=== PATIENT | female | born 1965 | race African-American/Black ===

== ENCOUNTER 2016-08-29 22:12 | Emergency (ER) | payer OTHER ==
[~2016-08-29] VITALS: Ht 162.6 cm; Wt 86.2 kg
[~2016-08-29 22:12] MED LIST: FOLI0.4T2 PO; GABA-586 PO; METH25VI11 SQ; ONDA4TAB10 PO
[2016-08-29] MEDS ORDERED: OXYCODONE/APAP 10/325 TABLET. ONE (22:41)
--- NOTE | 2016-08-29 23:18 | PHYS DOC ---
General Chief Complaint: CHEST PAIN Stated Complaint: CHEST PAIN Time Seen by MD: 23:01 Source: patient, family Problems: History of Present Illness Initial Comments Patient here with for chest pain. Patient says it started about 2 hours prior to arrival in emergency department. Feels a squeezing sensation in the center of the chest. She says she's never had this before. She was simply at rest when this started. She has no real shortness of breath but has made her break out into a sweat and feel hot. There is no nausea or vomiting with this. There is no history of injury or trauma to the chest. She's had no fever chills runny nose or sore throat. No cough. No abdominal pain. There is no change in bowel or bladder habits and no focal extremity or neurologic complaints are noted. does note the patient had elevated blood pressure at home up above 180 systolic. Her blood pressures normally run about 1:30 according to him. Patient did receive an aspirin at home which she thinks may have helped. There is no other increasing or decreasing factors. Patient's past medical shows marked for hypertension. She has no problems with cholesterol or diabetes. She is a nonsmoker and nonuser of ethanol. She has no family history known of heart disease. Allergies: Coded Allergies: No Known Drug Allergies (Unverified , 12/24/15) Past Medical History Medical History: hypertension Surgical History: gastric bypass, other Social History Smoker: non-smoker Alcohol: none Review of Systems All Other Systems: Reviewed and Negative Physical Exam General Appearance: WD/WN, no apparent distress Ear, Nose, Throat: normal ENT inspection, normal pharynx Neck: full range of motion, supple, normal inspection Respiratory: lungs clear, normal breath sounds, no respiratory distress Cardiovascular: regular rate, rhythm, no edema Gastrointestinal: non tender, soft, no organomegaly Back: no CVA tenderness, no vertebral tenderness Extremities: non-tender, normal inspection, no pedal edema Neurologic/Psychiatric: alert, normal mood/affect, oriented x 3 Skin: normal color Lymphatic: no adenopathy Comments Generally this is a well-developed well-nourished female in no acute distress. Vitals are as noted. Pertinent findings on physical exam shows the neck is supple without adenopathy or JVD. There's no meningeal signs. Chest is clear to auscultation bilaterally. There is no chest wall tenderness noted. Cardiac exam shows regular rate and rhythm without murmur. The abdomen is soft and nontender. Back shows no CVA tenderness. Extremities show no rash cyanosis or edema. Patient awake alert oriented and cooperative. Remainder of physical exam is clinically unremarkable. Orders, Labs, Meds Old charts note previous ER visits for gastroenteritis, medication refill, arthritis, degenerative joint disease. EKG shows sinus 70. Left axis deviation. No acute ST or T-wave changes. Labs today are essentially unremarkable. Cardiac enzymes are unremarkable. BNP is minimally elevated at 175. Chest x-ray shows some mild cardio megaly. There is no acute changes per the emergency physician. 0015 Patient resting comfortably in the ER. She has no further complaint of chest pain at this time. I discussed with the patient and her the uncertain cause or chest pain. She does have some cardiac risk factors including being -Iranian and hypertension, she did have an episode of hypertension documented home today. Her chest pain could be ischemic in nature as well. I discussed with her and her the safest course of action pugged admission in the hospital overnight for serial enzyme testing, cardiology consult in the morning, and possible stress testing to rule out MO or other cardiac disease. Patient really feels well, she has immediate and she wants to go to in the morning. She really would prefer to go home at this time. She and her do voice understanding of the risk of a missed heart attack or other problems should she go home. She does state that she will follow-up with her own physician tomorrow when encouraged to do so, they indicated that she may require cardiology referral or stress test from her family physician. She is encouraged to do so tomorrow. She also promises to return to the ER immediately if worsening anyway, including increasing pain, radiation of pain, nausea vomiting diaphoresis or shortness of breath. She understands that at that time we will just go ahead and admit her to the hospital. I did discuss discussed with her the need to take an aspirin daily for heart health. She voices understanding of this instruction as well as the risks of discharge. She is awake alert oriented and capable of making a reasonable decision on her part. She looks well, in no acute discomfort or stress, okay for discharge home at this time per her preference. JASPAL HORNE MD Aug 29, 2016 23:18
[2016-08-29] MEDS: FENTANYL PF 100 MCG/2 ML VIAL. IV ONE (23:30)
[2016-08-29 23:34] LABS: BASO % 1 % (0-3); EOS # 0.1 x10^3/uL (0.0-0.7); EOS % 2 % (0-3); HEMATOCRIT 39.2 % (36.0-47.0); HEMOGLOBIN 12.6 g/dL (12.0-15.5); LYMPH # 1.8 x10^3/uL (1.0-4.8); LYMPH % 58 % (24-48); MEAN CORPUSCULAR HEMOGLOBIN 31 pg (25-35); MEAN CORPUSCULAR HGB CONC 32 g/dL (31-37); MEAN CORPUSCULAR VOLUME 95 fL (79-100); MONO # 0.4 x10^3/uL (0.0-1.1); MONO % 14 % (0-9); NEUT # 0.8 x10^3uL (1.8-7.7); NEUT % 26 % (31-73); PLATELET COUNT 106 x10^3/uL (140-400); RED BLOOD COUNT 4.13 x10^6/uL (3.50-5.40); RED CELL DISTRIBUTION WIDTH 15.5 % (11.5-14.5); WHITE BLOOD COUNT 3.1 x10^3/uL (4.0-11.0)
[2016-08-29 23:42] LABS: BACTERIA,URINE 0 /HPF (0-FEW); BILIRUBIN,URINE NEG (NEG); CLARITY,URINE CLEAR; COLOR,URINE YELLOW; GLUCOSE,URINE NEG (NEG); NITRITE,URINE NEG (NEG); RBC,URINE 0 /HPF (0-2); SQUAMOUS EPITHELIAL CELL,UR FEW /LPF; UROBILINOGEN,URINE 0.2 mg/dL (0.2 mg/dL); WBC,URINE OCC /HPF (0-4)
[2016-08-29 23:50] LABS: ALBUMIN 3.6 g/dL (3.4-5.0); ALBUMIN/GLOBULIN RATIO 0.9 (1.0-1.7); CALCIUM 8.6 mg/dL (8.5-10.1); CREATININE 0.8 mg/dL (0.6-1.0); GFR 90.8; TOTAL BILIRUBIN 0.5 mg/dL (0.2-1.0); TOTAL PROTEIN 7.6 g/dL (6.4-8.2)
[2016-08-30 00:40] VITALS: BP 131/91
--- NOTE | 2016-08-30 07:51 | EKG ---
[address] [address] Test Date: 2016-08-29 Test Time: 22:20:15 Pat Name: JUAN ANTONIO ROBERT Department: Room: Gender: F Shipping Assistant: WESTLEY : 1965 Requested By: JASPAL HORNE Order Number: [id number] Reading MD: Measurements Intervals [place] Rate: 82 P: 34 NE: 160 QRS: -22 QRSD: 94 T: 21 QT: 350 QTc: 412 Interpretive Statements SINUS RHYTHM LEFTWARD AXIS R-S TRANSITION ZONE IN V LEADS DISPLACED TO THE LEFT OTHERWISE NORMAL ECG RI6.01 Unconfirmed report No previous ECG available for comparison
--- NOTE | 2016-08-30 09:20 | RAD ---
Portable chest, 08/29/2016: History: Chest pain The heart is at the upper limits of normal in size. There is tortuosity of the thoracic aorta. The pulmonary vascularity is normal. There appears to be a calcified granuloma in the left upper lobe. No acute infiltrates are seen. There is no evidence of pleural fluid. IMPRESSION: No acute cardiopulmonary abnormality is detected.
== END 2016-08-30 00:40 | disposition home or self-care (01) ==
LOC: ER 22:16
DX: R07.89 Other chest pain (principal); I10 Essential (primary) hypertension; Z98.84 Bariatric surgery status
CPT/HCPCS: 36415; 71010; 80053; 81001; 82553; 83880; 84484; 85027; 85610; 93005; 99285-25

== ENCOUNTER 2017-03-07 17:36 | Emergency (ER) | payer OTHER ==
[~2017-03-07] VITALS: Ht 160 cm; Wt 90.7 kg
[2017-03-07 17:54] VITALS: BP 109/81
--- NOTE | 2017-03-07 18:20 | PHYS DOC ---
Past History Past Medical History: Arthritis, Hypertension, Hypothyroid Past Surgical History: Gastric Bypass, Other Alcohol Use: None Drug Use: None Adult General Chief Complaint Chief Complaint: COUGH HPI HPI Patient is a 51 year old -[place] female who presents with a cough over the last 2 weeks. She states today she felt short of breath briefly but that has resolved. She states she coughs up clear sputum. She does have a history of smoking 3-5 cigarettes a day for 4 years and she stopped a year ago. She is having some discomfort in her left breast she states is worse when she takes a big deep breath it is tender on palpation. Currently she is denying shortness of breath and she states the discomfort is minimal. She denies a family history of heart attack. Review of Systems Review of Systems Constitutional: Denies fever or chills [] Eyes: Denies change in visual acuity, redness, or eye pain [] HENT: Denies nasal congestion or sore throat [] Respiratory: Denies cough or shortness of breath [] Cardiovascular: No additional information not addressed in HPI [] GI: Denies abdominal pain, nausea, vomiting, bloody stools or diarrhea [] : Denies dysuria or hematuria [] Musculoskeletal: Denies back pain or joint pain [] Integument: Denies rash or skin lesions [] Neurologic: Denies headache, focal weakness or sensory changes [] Endocrine: Denies polyuria or polydipsia [] Allergies Allergies Allergies Coded Allergies Type Severity Reaction Last Updated Verified No Known Drug Allergies 03/07/17 No Physical Exam Physical Exam Constitutional: Well developed, well nourished, no acute distress, non-toxic appearance. [] HENT: Normocephalic, atraumatic, bilateral external ears normal, oropharynx moist, no oral exudates, nose normal. [] Eyes: PERRLA, EOMI, conjunctiva normal, no discharge. [] Neck: Normal range of motion, no tenderness, supple, no stridor. [] Cardiovascular:Heart rate regular rhythm, no murmur [] Lungs & Thorax: Wheezing bilaterally, mild tender to palpation in the left breast on the chest wall Abdomen: Bowel sounds normal, soft, no tenderness, no masses, no pulsatile masses. [] Skin: Warm, dry, no erythema, no rash. [] Back: No tenderness, no CVA tenderness. [] Extremities: No tenderness, no cyanosis, no clubbing, ROM intact, no edema. [] Neurologic: Alert and oriented X 3, normal motor function, normal sensory function, no focal deficits noted. [] Psychologic: Affect normal, judgement normal, mood normal. [] Current Patient Data Vital Signs Vital Signs Date Time Temp Pulse Resp B/P (MAP) Pulse Ox O2 Delivery O2 Flow Rate FiO2 03/07/17 17:54 98.5 71 18 98 Room Air EKG EKG EKG shows heart rate [address] elevations or concerning T-wave inversions, normal axis, nonspecific intraventricular block noted, QTC 480 ms, as interpreted by me. Radiology/Procedures Radiology/Procedures View chest x-ray did not show any focal is elevations, bony abnormality's, pneumothorax, as interpreted by me. Impressions: Bronchitis Course & Med Decision Making Course & Med Decision Making Pertinent Labs and Imaging studies reviewed. (See chart for details) She does any history of smoking and felt better with DuoNeb. Walking desat was appropriate in the ER and did not desat or become tachycardic. She's being discharged with a Z-João, albuterol and prednisone for 5 days. Return precautions given. She is agreeable Plan B discharged in stable condition this time. Dragon Disclaimer Dragon Disclaimer This chart was dictated in whole or in part using Voice Recognition software in a busy, high-work load, and often noisy Emergency Department environment. It may contain unintended and wholly unrecognized errors or omissions. Departure Departure: Impression: Primary Impression: Cough Disposition: 01 HOME, SELF-CARE Condition: STABLE Referrals: HARDEEP CARIAS (PCP) Patient Instructions: Acute Bronchitis Additional Instructions: Your chest x-ray, EKG and lab work did not show acute abnormality's. You likely a bronchitis. Your being discharged home with 3 medicines. The first was an antibiotic called azithromycin. Please follow instructions on the prescription. The second one is an albuterol inhaler to use 1-2 puffs every 4-6 hours as needed for wheezing and the last medicine is prednisone the you'll need take one tablet daily for the next 5 days. If you develop worsening cough, fevers or have other concerns please return back to emergency department. You should follow-up with primary care physician within the next week. Scripts Albuterol Sulfate (PROAIR HFA INHALER) 8.5 Gm Hfa.aer.ad 1 PUFF INH PRN Q6HRS Y for SHORTNESS OF BREATH, #1 INHALER 0 Refills Prov: YUE ZEPEDA MD 03/07/17 Azithromycin (AZITHROMYCIN PACKET) 1 Gm Packet 1 PACKET PO ONCE, #1 PACKET Prov: YUE ZEPEDA MD 03/07/17 Prednisone (PREDNISONE) 50 Mg Tablet 1 TAB PO DAILY, #4 TAB Prov: YUE ZEPEDA MD 03/07/17 YUE ZEPEDA MD Mar 07, 2017 18:20
[2017-03-07] MEDS ORDERED: IPRATRPIUM/ALBUTEROL 0.5/2.5MG 3 ML NEBU. NEB ONE ×2 (19:00)
--- NOTE | 2017-03-07 19:29 | EKG ---
[address] [address] Test Date: 2017-03-07 Test Time: 18:59:13 Pat Name: JUAN ANTONIO ROBERT Department: Room: Gender: F Psychologist Research Assistant: : 1965 Requested By: YUE ZEPEDA Order Number: [id number] Reading MD: Measurements Intervals [place] Rate: 68 P: 0 [place]: 76 QRS: 4 QRSD: 210 T: 26 QT: 454 QTc: 488 Interpretive Statements SINUS RHYTHM NON SPECIFIC INTRAVENTRICULAR BLOCK QRS(T) CONTOUR ABNORMALITY CONSISTENT WITH ANTEROLATERAL INFARCT AGE UNDETERMINED ABNORMAL ECG RI6.01 No previous ECG available for comparison
[2017-03-07 19:32] LABS: BASO % 0 % (0-3); EOS # 0.1 x10^3/uL (0.0-0.7); EOS % 1 % (0-3); HEMOGLOBIN 13.1 g/dL (12.0-15.5); LYMPH # 2.9 x10^3/uL (1.0-4.8); LYMPH % 43 % (24-48); MEAN CORPUSCULAR HEMOGLOBIN 30 pg (25-35); MEAN CORPUSCULAR HGB CONC 34 g/dL (31-37); MEAN CORPUSCULAR VOLUME 89 fL (79-100); MONO # 0.5 x10^3/uL (0.0-1.1); MONO % 7 % (0-9); NEUT # 3.3 x10^3uL (1.8-7.7); NEUT % 49 % (31-73); PLATELET COUNT 128 x10^3/uL (140-400); RED CELL DISTRIBUTION WIDTH 14.8 % (11.5-14.5); WHITE BLOOD COUNT 6.8 x10^3/uL (4.0-11.0)
[2017-03-07 19:50] LABS: ALBUMIN 3.1 g/dL (3.4-5.0); CALCIUM 8.7 mg/dL (8.5-10.1); CREATININE 0.8 mg/dL (0.6-1.0); DIRECT BILIRUBIN 0.1 mg/dL (0.0-0.2); GFR 90.8; POTASSIUM 3.7 mmol/L (3.5-5.1); TOTAL BILIRUBIN 0.4 mg/dL (0.2-1.0); TOTAL PROTEIN 7.3 g/dL (6.4-8.2)
[2017-03-07] MEDS ORDERED: ALBU8.5H8 INH (20:07)
[2017-03-07] MEDS ORDERED: PRED50TA PO (20:07)
[2017-03-07] MEDS ORDERED: AZIT1PAC9 PO (20:07)
[2017-03-07] MEDS ORDERED: predniSONE 10 MG TABLET PO ONE (20:30)
[2017-03-07] MEDS ORDERED: AZITHROMYCIN 250 MG TABLET. PO ONE (20:30)
--- NOTE | 2017-03-08 07:42 | RAD ---
Chest x-ray Indication: Cough Technique: PA and lateral views of the chest Comparison: Previous study from 08/2016 Findings: Heart is normal in size. Ectatic thoracic aorta. Calcified left hilar lymph nodes. Stable calcified granuloma, left upper lobe. Otherwise, lungs are clear. No pneumothorax or pleural effusion. Multilevel degenerative changes seen in the thoracic spine. Impression: No acute cardiopulmonary process.
== END 2017-03-07 20:25 | disposition home or self-care (01) ==
LOC: ER 17:36
DX: J20.9 Acute bronchitis, unspecified (principal); E03.9 Hypothyroidism, unspecified; I10 Essential (primary) hypertension; M19.90 Unspecified osteoarthritis, unspecified site; Z98.84 Bariatric surgery status; Z87.891 Personal history of nicotine dependence
CPT/HCPCS: 36415; 71020; 80048; 80076; 82553; 83880; 84484; 85025; 93005; 94640; 99285; J0456; J7512; J7620

== ENCOUNTER 2018-05-18 18:48 | Emergency (ER) | payer OTHER ==
[~2018-05-18] VITALS: Ht 162.6 cm; Wt 95.3 kg
[~2018-05-18 18:48] MED LIST changes: +ALBU8.5H8 INH; +AZIT1PAC9 PO; -METH25VI11 SQ; +METH25VI60 SQ; +PRED50TA PO
[2018-05-18] MEDS ORDERED: ASPIRIN ENTERIC COATED 81 MG TABLET.DR. PO ONE (19:00)
[2018-05-18 19:22] LABS: BASO % 0 % (0-3); EOS # 0.1 x10^3/uL (0.0-0.7); EOS % 1 % (0-3); HEMATOCRIT 37.9 % (36.0-47.0); HEMOGLOBIN 12.2 g/dL (12.0-15.5); LYMPH # 1.6 x10^3/uL (1.0-4.8); LYMPH % 38 % (24-48); MEAN CORPUSCULAR HEMOGLOBIN 29 pg (25-35); MEAN CORPUSCULAR HGB CONC 32 g/dL (31-37); MEAN CORPUSCULAR VOLUME 91 fL (79-100); MONO # 0.4 x10^3/uL (0.0-1.1); MONO % 10 % (0-9); NEUT # 2.1 x10^3uL (1.8-7.7); NEUT % 50 % (31-73); PLATELET COUNT 164 x10^3/uL (140-400); RED BLOOD COUNT 4.15 x10^6/uL (3.50-5.40); RED CELL DISTRIBUTION WIDTH 16.7 % (11.5-14.5); WHITE BLOOD COUNT 4.2 x10^3/uL (4.0-11.0)
[2018-05-18 19:36] LABS: ALBUMIN 3.2 g/dL (3.4-5.0); ALBUMIN/GLOBULIN RATIO 0.8 (1.0-1.7); CALCIUM 8.5 mg/dL (8.5-10.1); CREATININE 0.8 mg/dL (0.6-1.0); GFR 90.4; POTASSIUM 3.8 mmol/L (3.5-5.1); TOTAL BILIRUBIN 0.5 mg/dL (0.2-1.0)
[2018-05-18 19:55] VITALS: BP 118/78
--- NOTE | 2018-05-18 20:21 | RAD ---
Single view chest 05/16/2018 CLINICAL INDICATION: Chest pain. COMPARISON: Chest 03/07/2017 FINDINGS: Cardiac and mediastinal silhouettes unremarkable. Minimal left basilar atelectasis. No pleural effusion, pneumothorax or focal consolidation. IMPRESSION: No acute cardiopulmonary abnormality. Electronically signed by: Dionte Gooden MD (05/18/2018 8:17 PM) [id number]
--- NOTE | 2018-05-19 06:01 | ED.ADGEN ---
Past History Past Medical History: Arthritis, Hypertension, Hypothyroid, Other Past Surgical History: Gastric Bypass, Other Additional Smoking Information: 3/DAY Alcohol Use: None Drug Use: None Adult General Chief Complaint Chief Complaint Substernal chest pain HPI HPI Patient is a 52-year-old Afro-Jama[place] female with history of hypertension, dyslipidemia and smoking who presents with substernal chest pain starting approximately 1 hour prior to arrival. Pain is currently rated 1/10. It is nonradiating. It is associated nausea shortness breath or sweats and is nonexertional. No pelvic or provocative features. Symptom onset while sitting down. No back pain, abdominal pain, cough, sore throat, fever, leg pain or swelling. No other acute symptoms or complaints. Denies history of CAD.[] Review of Systems Review of Systems Review symptoms as per history of present illness. All other review symptoms are negative. All other systems were reviewed and found to be within normal limits, except as documented in this note. Current Medications Current Medications Current Medications Medications (Trade) Dose Ordered Sig/Pastor Start Time Stop Time Status Last Admin Dose Admin Aspirin (Aspirin Enteric Coated) 324 mg 1X ONCE 05/18/18 19:00 05/18/18 19:02 DC 05/18/18 19:12 324 MG Allergies Allergies Allergies Coded Allergies Type Severity Reaction Last Updated Verified No Known Drug Allergies 03/07/17 No Physical Exam Physical Exam Constitutional: Well developed, well nourished, no acute distress, non-toxic appearance. [] HENT: Normocephalic, atraumatic, bilateral external ears normal, oropharynx moist, no oral exudates, nose normal. [] Eyes: PERRLA, EOMI, conjunctiva normal, no discharge. [] Neck: Normal range of motion, no tenderness, supple, no stridor. [] Cardiovascular:Heart rate regular rhythm, no murmur [] Lungs & Thorax: Bilateral breath sounds clear to auscultation [] Abdomen: Bowel sounds normal, soft, no tenderness. [] Skin: Warm, dry, no erythema, no rash. [] Back: No tenderness, no CVA tenderness. [] Extremities: No tenderness, no cyanosis, no clubbing, negative Homans signs,[] Neurologic: Alert and oriented X 3, normal motor function, normal sensory function, no focal deficits noted. [] Psychologic: Affect normal, judgement normal, mood normal. [] Current Patient Data Vital Signs Vital Signs Date Time Temp Pulse Resp B/P (MAP) Pulse Ox O2 Delivery O2 Flow Rate FiO2 05/18/18 19:55 75 18 118/78 (91) 99 Room Air 05/18/18 18:50 98.2 Lab Results Laboratory Tests Test 05/18/18 19:05 White Blood Count 4.2 x10^3/uL (4.0-11.0) Red Blood Count 4.15 x10^6/uL (3.50-5.40) Hemoglobin 12.2 g/dL (12.0-15.5) Hematocrit 37.9 % (36.0-47.0) Mean Corpuscular Volume 91 fL (79-100) Mean Corpuscular Hemoglobin 29 pg (25-35) Mean Corpuscular Hemoglobin Concent 32 g/dL (31-37) Red Cell Distribution Width 16.7 % (11.5-14.5) H Platelet Count 164 x10^3/uL (140-400) Neutrophils (%) (Auto) 50 % (31-73) Lymphocytes (%) (Auto) 38 % (24-48) Monocytes (%) (Auto) 10 % (0-9) H Eosinophils (%) (Auto) 1 % (0-3) Basophils (%) (Auto) 0 % (0-3) Neutrophils # (Auto) 2.1 x10^3uL (1.8-7.7) Lymphocytes # (Auto) 1.6 x10^3/uL (1.0-4.8) Monocytes # (Auto) 0.4 x10^3/uL (0.0-1.1) Eosinophils # (Auto) 0.1 x10^3/uL (0.0-0.7) Basophils # (Auto) 0.0 x10^3/uL (0.0-0.2) Sodium Level 144 mmol/L (136-145) Potassium Level 3.8 mmol/L (3.5-5.1) Chloride Level 105 mmol/L (98-107) Carbon Dioxide Level 30 mmol/L (21-32) Anion Gap 9 (6-14) Blood Urea Nitrogen 18 mg/dL (7-20) Creatinine 0.8 mg/dL (0.6-1.0) Estimated GFR (Cockcroft-Gault) 90.4 BUN/Creatinine Ratio 23 (6-20) H Glucose Level 77 mg/dL (70-99) Calcium Level 8.5 mg/dL (8.5-10.1) Total Bilirubin 0.5 mg/dL (0.2-1.0) Aspartate Amino Transferase (AST) 21 U/L (15-37) Alanine Aminotransferase (ALT) 21 U/L (14-59) Alkaline Phosphatase 95 U/L (46-116) Troponin I Quantitative < 0.017 ng/mL (0-0.055) Total Protein 7.0 g/dL (6.4-8.2) Albumin 3.2 g/dL (3.4-5.0) L Albumin/Globulin Ratio 0.8 (1.0-1.7) L EKG EKG [EKG: Normal sinus rhythm, no acute changes.] Radiology/Procedures Radiology/Procedures [Chest x-ray: cardiopulmonary disease.] Course & Med Decision Making Course & Med Decision Making Pertinent Labs and Imaging studies reviewed. (See chart for details) [Aspirin given, chest pain resolved. Recommend repeating chart troponin the ED and hospital admission offered. Patient declines both. She understands that her heart has not been adequately evaluated and it has not been determined whether symptoms related to coronary disease or other cause due to patient's request go home without further testing. Recommend PCP follow-up. Return precautions reviewed] Final Impression Final Impression [1. Chest pain ] Dragon Disclaimer Dragon Disclaimer This electronic medical record was generated, in whole or in part, using a voice recognition dictation system. HARSHAD LUX DO May 19, 2018 06:01
--- NOTE | 2018-05-19 06:25 | EKG ---
[address] [address] Test Date: 2018-05-18 Test Time: 18:54:11 Pat Name: JUAN ANTONIO ROBERT Department: Room: Gender: F [employer] Engineer Sergeant: LELAND : 1965 Requested By: HARSHAD LUX Order Number: [id number] Reading MD: Joel Baig MD Measurements Intervals [place] Rate: 67 P: -51 SC: 136 QRS: -26 QRSD: 92 T: -11 QT: 364 QTc: 387 Interpretive Statements SINUS RHYTHM LAD POOR R WAVE PROGRESSION Electronically Signed On 05-20-2018 10:32:49 CLERK STENOGRAPHER by Joel Baig MD
== END 2018-05-18 20:06 | disposition home or self-care (01) ==
LOC: ER 18:48
DX: R07.2 Precordial pain (principal); M19.90 Unspecified osteoarthritis, unspecified site; I10 Essential (primary) hypertension; E03.9 Hypothyroidism, unspecified; F17.200 Nicotine dependence, unspecified, uncomplicated
CPT/HCPCS: 36415; 71045; 80053; 84484; 85025; 93005; 99284